=== PATIENT | male | born 1995 | race Caucasian/White ===

== ENCOUNTER 2022-10-01 21:38 | Emergency (ER) | payer BC ==
[~2022-10-01] VITALS: Ht 180.3 cm; Wt 81.6 kg
[2022-10-01 21:55] VITALS: BP 164/93
[2022-10-01] MEDS ORDERED: METOPROLOL 5 MG/5 ML VIAL IVP ONE (22:10)
[2022-10-01] MEDS ORDERED: NACL 0.9% 1,000 ML IV ONE (22:10)
[2022-10-01 22:39] LABS: BASOPHILS # (AUTO) 0.1 K/uL (0.00-0.22); BASOPHILS % (AUTO) 0.4 % (0.0-2.0); EOSINOPHILS % (AUTO) 0.1 % (0.0-4.0); HEMATOCRIT 46.5 % (36-52); HEMOGLOBIN 15.7 g/dL (12.0-18.0); LYMPHOCYTES # (AUTO) 1.6 K/uL (2.0-11.5); LYMPHOCYTES % (AUTO) 10.5 % (20.5-51.1); MEAN CORPUSCULAR HEMOGLOBIN 28 pg (27-31); MEAN CORPUSCULAR HGB CONC 34 g/dL (33-37); MEAN CORPUSCULAR VOLUME 83.9 fL (80-94); MONOCYTES # (AUTO) 1.6 K/uL (0.8-1.0); MONOCYTES % (AUTO) 10.4 % (1.7-9.3); NEUTROPHILS # (AUTO) 11.9 K/uL (1.8-7.7); NEUTROPHILS % (AUTO) 78.6 % (42.2-75.2); PLATELET COUNT (AUTO) 306 K/uL (140-450); RED BLOOD CELL COUNT(AUTO) 5.54 MIL/uL (4.20-6.10); RED CELL DISTRIBUTION WIDTH 13.9 % (11.6-13.7); WHITE BLOOD COUNT (AUTO) 15.2 K/uL (4.8-10.8)
--- NOTE | 2022-10-01 22:59 | NUR ---
HR 105 S/P BOLUS OF NORMAL SALINE. PER LINCOLN JUAREZ TO HOLD METOPROLOL.
[2022-10-01 23:07] LABS: ALBUMIN 4.5 g/dL (3.4-5.0); ANION GAP 15.8 (8-16); CARBON DIOXIDE 25.9 mmol/L (21-32); POTASSIUM 3.7 mmol/L (3.5-5.1); TOTAL BILIRUBIN 0.7 mg/dL (0.0-1.0)
[2022-10-01 23:10] LABS: CHOL/HDL RATIO 3.9 (1-4.5); HDL CHOLESTEROL 52 mg/dL (40-60); LDL (CALC) 147 mg/dL (60-100); TRIGLYCERIDES 27 mg/dL (30-150)
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
[2022-10-02 00:51] VITALS: BP 139/76
--- NOTE | 2022-10-02 01:30 | NUR ---
A/O X4 AMBULATORY, DENIES CP OR MD CHAPINCITO REEVAL PT ,OK TO DC HOME
--- NOTE | 2022-10-02 02:18 | NUR ---
Patient discharged with v/s stable. Written and verbal after care instructions given and explained. Patient verbalized understanding. Ambulatory with steady gait. All questions addressed prior to discharge. Advised to follow up with PMD. PT LEFT WITH HIS BELONGINGS
== END 2022-10-02 02:18 | disposition home or self-care (01) ==
LOC: MED 21:38
DX: F15.129 Other stimulant abuse with intoxication, unspecified (principal)
CPT/HCPCS: 36415; 71045; 80053; 80061; 83880; 84484; 85025; 93005; 96360; 99285; J7030; Q0092; J3490